=== PATIENT | male | born 1940 | race Caucasian/White ===

== ENCOUNTER 2017-03-08 03:53 | Inpatient (IN) | payer OTHER, BC ==
[~2017-03-08] VITALS: Ht 180.3 cm; Wt 100.1 kg
[2017-03-08] VITALS (13 sets, daily range): BP systolic 135–189; BP diastolic 56–93
[~2017-03-08 03:53] MED LIST: ASPIRIN81 M2 PO; BYSTOLIC5 MG PO; IRBESARTAN-HCT1 EAC1 PO; JANUMET 50/51 TABLET PO; LIPITOR20 MG PO; NORVASC2.5 MG PO
[2017-03-08 09:52] LABS: POINT-OF-CARE METER ID UU14174212
[2017-03-08 13:28] LABS: POINT-OF-CARE METER ID UU13113675
[2017-03-08] MEDS ORDERED: HYDROCODON-ACE1 EAC7 PO (15:11)
[2017-03-08 17:35] LABS: METH RESISTANT S AUREUS PCR NEGATIVE (NEGATIVE); PROBE CHECK PASS; SPECIMEN PROCESSING CONTROL PASS
[2017-03-08 18:13] LABS: POINT-OF-CARE METER ID UU14314083
[2017-03-08 20:57] LABS: POINT-OF-CARE METER ID UU14174217
[2017-03-09 03:48] VITALS: BP 145/68
[2017-03-09 07:45] LABS: POINT-OF-CARE METER ID UU14314088
[2017-03-09 08:47] VITALS: BP 159/70
== END 2017-03-09 10:52 | disposition home or self-care (01) | DRG 39 ==
LOC: ENRESERV 03:53 → 2SOUTH 08:29 → ENRESERV 14:01 → 4WEST 15:34 → ENRESERV 21:39 → 4EAST 22:58
PROVIDERS: Surgery
DX: I65.21 Occlusion and stenosis of right carotid artery (principal); E11.9 Type 2 diabetes mellitus without complications; I10 Essential (primary) hypertension; E66.9 Obesity, unspecified; Z68.30 Body mass index [BMI] 30.0-30.9, adult; Z86.73 Personal history of transient ischemic attack (TIA), and cerebral infarction without residual deficits; Z79.82 Long term (current) use of aspirin; Z87.891 Personal history of nicotine dependence; Z79.84 Long term (current) use of oral hypoglycemic drugs
CPT/HCPCS: 82948; 87641; 93005; C1768; J0131; J0690; J1100; J1644; J1650; J1815; J2405; J2720; J2765; J2795; J3010; J7120